=== PATIENT | male | born 1990 | race Caucasian/White ===

== ENCOUNTER 2024-11-27 10:21 | Emergency (ER) | payer OTHER ==
[2024-11-27 11:35] VITALS: RESP 18; TEMP 97.2; O2SAT 97
--- NOTE | 2024-11-27 11:46 | ERPHSYRPT ---
- History of Present Illness Time Seen by Provider: 11/27/24 11:40 Source: patient Exam Limitations: no limitations Patient Subjective Stated Complaint: Pt. states, "I thought I had pulled a muscle in my leg. I had a long cramp in it, but I don't remember hurting it at all. Now I have this hard area here behind the knee and I'm afraid it may be a blood clot." Triage Nursing Assessment: Pt. ambulated to room without difficulty. A&Ox4, Skin P/W/D, Resp. even unlabored, able to move all four ext. left leg pain from knee down withmovement. slightly swollen and firm behind left knee. Pulses + Physician History: Patient here with a lump behind left leg. Most concerned about a blood clot. Patient noticed it yesterday. No pain, falls, trauma. No fever. No history of blood clots, not on any anticoagulation. Patient states that his friends "freaked him out" therefore would like evaluation for blood clot today. Patient is taking PO well. Same number of urinations and defecations. The patient has no signs of altered mental status, nuchal rigidity, signs of meningitis. The patient is up-to-date on all vaccinations. Allergies/Adverse Reactions: No Known Drug Allergies Allergy (Verified 11/27/24 11:56) Home Medications: Ezetimibe 10 mg [Zetia 10 MG] 10 mg PO DAILY 11/27/24 [History] Losartan Potassium 50 mg [Cozaar 50 MG] 50 mg PO DAILY 11/27/24 [History] Hx Tetanus, Diphtheria Vaccination/Date Given: No Hx Influenza Vaccination/Date Given: No Hx Pneumococcal Vaccination/Date Given: No Immunizations Up to Date: No Travel Risk - International Travel Have you traveled outside of the country in past 3 weeks: No - Emerging Infectious Disease Are you exhibiting symptoms associated with any current EIDs: No - Social History Smoking Status: Never smoker Exposure to second hand smoke: No Drug Use: none - Social Determinants of Health Will the patient participate in the screening: Declined to provide - Nursing Vital Signs Nursing Vital Signs: Initial Vital Signs Temperature 97.2 F 11/27/24 10:22 Pulse Rate 62 11/27/24 10:22 Respiratory Rate 18 11/27/24 10:22 Blood Pressure 130/77 11/27/24 10:22 O2 Sat by Pulse Oximetry 97 11/27/24 10:22 Pain Scale Pain Intensity 2 - Physical Exam SpO2: 97 Comments: 11/27/24 11:45 Review of Systems Constitutional: Negative for fever. HENT: Negative for congestion. Respiratory: Negative for shortness of breath. Cardiovascular: Negative for chest pain. Gastrointestinal: Negative for abdominal pain. Genitourinary: Negative for dysuria. Musculoskeletal: Negative for back pain. Skin: Negative for rash. Neurological: Negative for headaches. Psychiatric/Behavioral: Negative for behavioral problems. All other systems reviewed and are negative. Physical Exam Vitals signs and nursing note reviewed. Constitutional: Appearance: Patient is well-developed. HENT: Head: Normocephalic and atraumatic. Eyes: Conjunctiva/sclera: Conjunctivae normal. Neck: Musculoskeletal: Normal range of motion. Trachea: No tracheal deviation. Cardiovascular: Rate and Rhythm: Normal rate. Heart sounds normal. Pulmonary: Effort: Pulmonary effort is normal. No respiratory distress. Abdominal: Palpations: Abdomen is soft. Musculoskeletal: General: N left lower leg demonstrates some tenderness, tenderness extending into left calf. No obvious deformity, sensation intact, 2+ capillary refill, 2 point tactile discrimination intact. 5 out of 5 strength. Full range of motion without pain. Compartments are soft, nontender. Overlying skin shows no tenting, bruising, ecchymosis. Skin: General: Skin is warm and dry. Neurological/ Psychiatric: Mental Status: Mental status, behavior, interaction with environment is appropriate for patient's age and condition - Course Nursing assessment & vital signs reviewed: Yes Ordered Tests: Active Orders 24 hr Category Date Time Status D-DIMER QUANTITATIVE Stat Lab 11/27/24 11:35 Completed Lab/Rad Data: Laboratory Results 11/27/24 Range/Units 11:35 D-Dimer 0.19 (0.0-0.50) mg/L - Progress Progress: improved Progress Note: 11/27/24 11:46 Differential diagnosis includes DVT, musculoskeletal strain, other sprain We will obtain a D-dimer as her initial step for evaluation of DVT. Given that patient has no falls or trauma I will not obtain any x-rays or other imaging today 11/27/24 13:13 Patient's D-dimer is negative. Therefore 97% sensitivity for not being a blood clot. I did discuss this with the patient. We made decision not to obtain an ultrasound today. Patient may follow-up as an outpatient with his PCP should symptoms persist. May benefit from an ultrasound at that point in time. Otherwise return here sooner for new or changing symptoms. Counseled pt/family regarding: lab results - Departure Departure Disposition: Home Clinical Impression: Pain of left calf Condition: Stable Critical Care Time: No Referrals: JUAN JOSE NP [Primary Care Provider, UNKNOWN] - Follow up/PCP as directed Instructions: Knee Pain (DC)
[2024-11-27 12:14] VITALS: BP 130/82; PULSE 65
== END 2024-11-27 12:20 | disposition home or self-care (01) ==
LOC: ED 10:21
DX: M79.662 Pain in left lower leg (principal); R22.42 Localized swelling, mass and lump, left lower limb; Z79.899 Other long term (current) drug therapy